=== PATIENT | male | born 2000 | race American Indian/Alaskan Native ===

== ENCOUNTER 2021-01-23 08:26 | Emergency (ER) | payer SELFPAY ==
[2021-01-23] MEDS ORDERED: levETIRAcetam 1,000 MG in SODIUM CHLORIDE 0.9% 100 ML IV ONE (08:31)
--- NOTE | 2021-01-23 08:35 | Emergency Department Report ---
ED Seizure HPI - General Stated Complaint: SEIZURE Time Seen by Provider: 01/23/21 08:30 Source: EMS Mode of arrival: Stretcher - History of Present Illness Initial Comments: 20-year-old male, history of seizures, presents to ED following seizure at work. EMS reports coworkers stated that patient had 2 seizures, lasting 5 minutes each. Upon EMS arrival, patient was alert, anxious, then went into another seizure. Patient was given 2 mg of Ativan by EMS. Patient is currently lethargic but arousable. Patient states he was never prescribed any seizure medication. Per EMS, patient's sister states that he is noncompliant with seizure medicine, however she did not say which medication. Patient denies any alcohol or drug use. MD Complaint: seizure -: This morning Description of Episode: loss of consciousness Duration of Episode: 5 -: minutes(s) Witnessed:: Yes Seizure History: known seizure disorder Place: work Associated Symptoms: denies other symptoms Treatments Prior to Arrival: benzodiazepines - Related Data Previous Rx's Medication Instructions Recorded Last Taken Type levETIRAcetam [Keppra TAB] 500 mg PO BID #60 tablet 01/23/21 Unknown Rx Allergies Allergy/AdvReac Type Severity Reaction Status Date / Time Unable to Assess Allergy Unverified 01/23/21 10:31 ED Review of Systems ROS: Stated complaint: SEIZURE Other details as noted in HPI Comment: All other systems reviewed and negative Constitutional: denies: fever Neurological: denies: headache ED Past Medical Hx - Medications Home Medications: Home Medications Medication Instructions Recorded Confirmed Last Taken Type levETIRAcetam [Keppra TAB] 500 mg PO BID #60 tablet 01/23/21 Unknown Rx ED Physical Exam - General General appearance: in no apparent distress, other (Drowsy) - Head Head exam: Present: atraumatic, normocephalic - Eye Eye exam: Present: normal appearance, PERRL, EOMI - ENT ENT exam: Present: mucous membranes moist - Neck Neck exam: Present: normal inspection - Cardiovascular Cardiovascular Exam: Present: regular rate, normal rhythm, systolic murmur - GI/Abdominal GI/Abdominal exam: Present: soft. Absent: distended, tenderness - Extremities Exam Extremities exam: Present: normal inspection - Neurological Exam Neurological exam: Present: alert, oriented X3, CN II-XII intact. Absent: motor sensory deficit - Psychiatric Psychiatric exam: Present: normal affect, normal mood - Skin Skin exam: Present: warm, dry, intact, normal color ED Course Vital Signs 01/23/21 01/23/21 08:34 14:38 Pulse Rate 72 75 Respiratory 16 18 Rate Blood Pressure 140/80 130/82 [r] O2 Sat by Pulse 97 100 Oximetry - Reevaluation(s) Reevaluation #1: 01/23/21 11:49 Patient asleep but arousable. He is A&O x3 Reevaluation #2: 01/23/21 14:22 Patient currently awake and alert. A&O x3. Ambulatory without assistance. Will discharge at this time. ED Medical Decision Making - Lab Data Result diagrams: 01/23/21 08:58 01/23/21 08:58 - Medical Decision Making 20-year-old male presents to ED following a seizure while at work. Patient noncompliant with seizure medication. Here in the ED, patient was loaded with IV Keppra. He was observed x6 hours for prolonged postictal. Patient also received Ativan from EMS. No further seizures here in the ED. He is currently awake and alert x3, no neuro deficits on exam. Patient is ambulatory, asking for something to eat. Patient will be discharged at this time with prescription. Outpatient follow-up advised, return precautions given. - Differential Diagnosis Seizure Critical care attestation.: If time is entered above; I have spent that time in minutes in the direct care of this critically ill patient, excluding procedure time. ED Disposition Clinical Impression: Seizure Disposition: DC-01 TO HOME OR SELFCARE Is pt being admited?: No Condition: Stable Instructions: Seizure, Adult, [id number] Prescriptions: levETIRAcetam [Keppra TAB] 500 mg PO BID #60 tablet Referrals: PRIMARY MD LIZ [Primary Care Provider] - 3-5 Days MOSHE DICKENS MD [Referring] - 3-5 Days Time of Disposition: 14:27
[2021-01-23 09:51] LABS: Basophils % (Auto) 0.3 % (0.0-1.8); Eosinophils # (Auto) 0.1 K/mm3 (0.0-0.4); Eosinophils % (Auto) 1.9 % (0.0-4.3); Hematocrit 41.2 % (35.5-45.6); Hemoglobin 13.5 gm/dl (11.8-15.2); Lymphocytes # (Auto) 1.3 K/mm3 (1.2-5.4); Lymphocytes % (Auto) 35.5 % (13.4-35.0); Mean Corpuscular HGB Conc 33 % (32-34); Mean Corpuscular Volume 81 fl (84-94); Monocytes # (Auto) 0.5 K/mm3 (0.0-0.8); Monocytes % (Auto) 12.6 % (0.0-7.3); Platelet Count 271 K/mm3 (140-440); Red Blood Count 5.07 M/mm3 (3.65-5.03); Red Cell Distribution Width 14.4 % (13.2-15.2)
[2021-01-23 10:10] LABS: BUN/Creatinine Ratio 14; Blood Urea Nitrogen 19 mg/dL (9-20); Hemolysis Index 18
[2021-01-23] MEDS ORDERED: levETIRAcetam 1000 MG/NS 0.75% 1,000 MG/100 ML BAG IV ONE (11:00)
[2021-01-23 14:39] VITALS: BP 130/82
== END 2021-01-23 14:41 | disposition home or self-care (01) ==
LOC: ED 08:26
DX: G40.909 Epilepsy, unspecified, not intractable, without status epilepticus (principal); Z79.899 Other long term (current) drug therapy
CPT/HCPCS: 36415; 80048; 85025; 96374; 99284; J1953